=== PATIENT | male | born 1945 | race Caucasian/White ===

== ENCOUNTER 2023-03-22 10:46 | Outpatient (AMB) | payer MEDICARE, SELFPAY ==
--- NOTE | 2023-03-22 11:03 | MHC.OFFVIS ---
Intake Intake Visit Reasons: BPH Intake Note: New Patient is Present for BPH Current Medication:Tamsulosin, Tadalafil Antibiotic Allergy: None Blood Thinner: None Pharmacy: [facility] PVR: 725 Allergies No Known Allergies Allergy (Verified 03/22/23 11:07) Medication List - Last Reconciled 03/22/23 by Peter Solis MD aspirin (Adult Low Dose Aspirin) 81 mg PO DAILY atorvastatin 40 mg PO DAILY bethanechol chloride 50 mg PO BID 30 days coenzyme Q10 100 mg PO DAILY metoprolol succinate ER 25 mg PO DAILY tadalafil 10 mg PO ONCE PRN 30 days tamsulosin 0.4 mg PO DAILY terazosin 10 mg PO BEDTIME 30 days HPI HPI Comments History of Present Illness Details Dean is a pleasant male. He is a patient of . He seen for the following urologic conditions - lower urinary tract symptoms - incomplete bladder emptying - erectile dysfunction PVR 700 cc in office Discussed voiding cycle and high residual Will switch from tamsulosin to terazosin Trial of daily Retired vice president [employer] Lower urinary tract symptoms Longstanding Mild nocturia Variable stream Has been on Flomax for many years Notices when he misses a dose Erectile dysfunction Progressive Age related Has responded to on demand tadalafil a past Given lower urinary tract symptoms will try daily tadalafil with on demand [facility] Medical History (Updated 03/22/23 @ 11:22 by Peter Solis MD) Benign prostatic hyperplasia with nocturia BPH (benign prostatic hyperplasia) Inguinal hernia Review of Systems Const Denies chills and Denies fever(s) Card Reports no additional complaints and Denies syncope Resp Denies cough GI Denies abdominal pain and Denies heartburn Reports as per HPI and Denies change in libido Neuro Denies syncope Psych Denies change in libido Endo Denies change in libido Physical Exam Const General: cooperative, healthy appearing, comfortable and no acute distress Orientation/consciousness: patient oriented x3 HEENT Face and sinus: Yes normal facial exam Mouth: moist mucous membranes Neck Neck: Yes normal visual inspection, Yes full ROM and Yes trachea midline Chest Chest palpation & inspection: normal inspection of the chest Resp Effort & Inspection: normal respiratory effort, able to speak in complete sentences and no respiratory distress GI Inspection: Yes normal to inspection Back/Spine/Pelvis Cervical Spine: normal cervical lordosis Thoracic/Lumbar Spine: thoracic and lumbar spine normal to inspection Skin General skin exam: no rashes or lesions noted Neuro General: patient oriented x3, gait normal, tone normal and moves all extremities Extrem General: Yes normal to inspection and Yes capillary refill normal Office Procedures Post Void Residual Post Residual Void Post Void Residual (PVR): [id number] Void Residual by ultrasound Assessment & Plan Assessment & Plan (1) Erectile dysfunction: Code(s): N52.9 - Male erectile dysfunction, unspecified (2) Urinary retention with incomplete bladder emptying: Code(s): R33.9 - Retention of urine, unspecified (3) BPH (benign prostatic hyperplasia): Code(s): N40.0 - Benign prostatic hyperplasia without lower urinary tract symptoms Plan Two month follow-up tele visit Orders: Orders AMB Post Void Residual by ultrasound Today N40.0 - Benign prostatic hyperplasia without lower urinary tract symptoms Medications: New tadalafil as needed 10 mg PO ONCE 30 days PRN 30 tabs 1RF sexual activity N52.9 - Male erectile dysfunction, unspecified terazosin 10 mg PO BEDTIME 30 days 30 caps 1RF N13.8 - Other obstructive and reflux uropathy, N40.0 - Benign prostatic hyperplasia without lower urinary tract symptoms, N40.1 - Benign prostatic hyperplasia with lower urinary tract symptoms bethanechol chloride 50 mg PO BID 30 days 60 tabs 1RF N39.0 - Urinary tract infection, site not specified, R33.9 - Retention of urine, unspecified Patient Instructions: Imaging studies, laboratory and physical exam results were discussed and reviewed in detail. No major barriers to patient understanding were identified. An opportunity to ask questions regarding the treatment plan was provided. All questions were answered. The patient expressed understanding and agreement with the above treatment plan. The patient is aware they should contact our office by phone for worsening of their current condition or the appearance of new urologic symptoms. Compliance is encouraged with any medications and followup testing that is ordered. It is a privilege to participate in the urologic care of your patient. If you have any questions or concerns regarding treatment for the above conditions, or other urologic issues, please do not hesitate to contact me. The office telephone contact is [phone]. This note is constructed using voice recognition software. While every effort has been made to ensure accuracy emergency doctor errors may have been included. Yours sincerely, Dr Peter Solis MD, [facility] - Urology Providers of Expert, Compassionate Care for the Genitourinary System Coding Level of Care Code New Pt Level 4 (36985) Diagnoses Erectile dysfunction N52.9 Urinary retention with incomplete bladder emptying R33.9 BPH (benign prostatic hyperplasia) N40.0 CPT Codes Post Residual Void - PVR CPT Code: 34092-[id number] Void Residual by ultrasound ([id number])
== END 2023-03-22 11:24 | disposition home or self-care (01) ==
PROVIDERS: Visit Provider Urology
DX: N52.9 Male erectile dysfunction, unspecified (principal); R33.9 Retention of urine, unspecified; N40.0 Benign prostatic hyperplasia without lower urinary tract symptoms
CPT/HCPCS: 99204

== ENCOUNTER → 2023-03-22 10:46 | Outpatient (BNVA) | payer MEDICARE, SELFPAY | PROVIDERS: Visit Provider Urology | DX: N40.1 Benign prostatic hyperplasia with lower urinary tract symptoms (principal); N13.8 Other obstructive and reflux uropathy; R33.8 Other retention of urine; N52.9 Male erectile dysfunction, unspecified; Z79.899 Other long term (current) drug therapy | CPT/HCPCS: 51798; 99202 ==

== ENCOUNTER → 2023-05-25 08:28 | Outpatient (BNVA) | payer MEDICARE, SELFPAY | PROVIDERS: PCP Physician Assistant; Visit Provider Urology ==